=== PATIENT | female | born 1950 | race African-American/Black ===

== ENCOUNTER → 2017-02-10 | Outpatient (CLI) | payer MEDICARE ==
[2016-08-22 15:00] VITALS: BP 120/80
[~2017-02-10] MED LIST: ASPI81TA2 PO; LISI-338 PO; LORA10TA3 PO; METF500T4 PO; METF500T9 PO; PRAV40TA2 PO; VERA240C2 PO
--- NOTE | 2017-02-10 15:58 | RAD ---
Examination: 3 views of the right History: History of degenerative disc disease, pain in the posterior knee Comparison: 01/17/2011. Findings: There is moderate moderate to severe joint space loss identified in the medial, lateral compartment femoral compartment most severe in the patellofemoral compartment. There is faint vertical calcification identified in the region superior to the patella, nonspecific could be vascular calcification or capsular calcification. Impression: 1. Severe tricompartmental degenerative changes most severe in the patellofemoral compartment 2. There is faint vertical calcification identified in the region superior to the patella, nonspecific could be vascular calcification or capsular calcification.
== END | disposition home or self-care (01) ==
LOC: RAD 13:00
PROVIDERS: ATTEND Family Medicine
DX: M17.11 Unilateral primary osteoarthritis, right knee (principal)
CPT/HCPCS: 73562

== ENCOUNTER 2017-06-24 22:45 | Inpatient (IN) | payer MEDICARE ==
[~2017-06-24] VITALS: Ht 162.6 cm; Wt 85.7 kg
[~2017-06-24 22:45] MED LIST changes: +ASPI-630 PO; -ASPI81TA2 PO
[2017-06-24 23:10] LABS: BASO # 0.1 x10^3/uL (0.0-0.2); BASO % 1 % (0-3); EOS % 1 % (0-3); HEMATOCRIT 37.8 % (36.0-47.0); HEMOGLOBIN 12.7 g/dL (12.0-15.5); LYMPH # 4.3 x10^3/uL (1.0-4.8); LYMPH % 40 % (24-48); MEAN CORPUSCULAR HEMOGLOBIN 32 pg (25-35); MEAN CORPUSCULAR HGB CONC 34 g/dL (31-37); MEAN CORPUSCULAR VOLUME 94 fL (79-100); MONO % 10 % (0-9); NEUT % 47 % (31-73); PLATELET COUNT 205 x10^3/uL (140-400); RED BLOOD COUNT 4.02 x10^6/uL (3.50-5.40); WHITE BLOOD COUNT 10.6 x10^3/uL (4.0-11.0)
[2017-06-24] MEDS ORDERED: ONDANSETRON PF 4 MG/2 ML VIAL. IV PRN (23:15)
[2017-06-24] MEDS ORDERED: MORPHINE SULFATE 4 MG/ML DISP.SYRIN. IV PRN (23:15)
[2017-06-24] MEDS ORDERED: NITROGLYCERIN SUBLINGUAL 0.4 MG BOTTLE OF 25. SL PRN (23:15)
[2017-06-24] MEDS ORDERED: ACETAMINOPHEN 325 MG TABLET. PO PRN (23:15)
--- NOTE | 2017-06-24 23:18 | PHYS DOC ---
Past Medical History Past Medical History: Arthritis, Diabetes-Type II, GERD, High Cholesterol, Hypertension, Other Past Surgical History: , Other Additional Past Surgical Histo: cataract Alcohol Use: None Drug Use: None Adult General Chief Complaint Chief Complaint: CHEST PAIN HPI HPI Patient is a 67 year old female who presents here today complaining of left- sided chest pain to her left arm with diaphoresis. Patient reports the pain started earlier today. Patient has a history of hypertension diabetes. Patient has any liver longer kidney problems. Patient has no history of coronary disease or strokes in the past. Patient reports she had a normal exercise stress test here at [facility] approximate one year ago when she was admitted for chest pain. Patient reports she is tobacco free for approximately one year. She reports when she was admitted to the hospital at [place] one year ago that was last time she smoked. Patient has any alcohol or drugs. Patient has any fevers shakes chills vomiting or diarrhea. Patient does admit to some nausea with her chest discomfort. Patient reports dizziness with chest discomfort. Patient has diaphoresis and some shortness of breath. Patient has any calf pain. Patient has any fevers shakes chills nausea vomiting diarrhea Cough cold rhinorrhea per Review of systems Constitutional: Denies fever or chills Eyes: Denies change in visual acuity, redness, or eye pain All other review systems are negative except as documented in the history of present illness portion. Physical exam Constitutional: Well developed, well nourished, no acute distress, non-toxic appearance. HENT: Normocephalic, atraumatic, bilateral external ears normal, oropharynx moist, no oral exudates, nose normal. Eyes: conjunctiva normal, no discharge. Neck: Normal range of motion, no tenderness, supple, no stridor. Cardiovascular:Heart rate regular rhythm, Lungs & Thorax: Bilateral breath sounds clear to auscultation Abdomen: Bowel sounds normal, soft, no tenderness, no masses, no pulsatile masses. Skin: Warm, dry, Back: No tenderness, Extremities: No tenderness, no cyanosis, Neurologic: Alert and oriented X 3, normal motor function, normal sensory function, no focal deficits noted. Psychologic: Affect normal, judgement normal, mood normal. EKG reveals normal sinus rhythm at a heart rate of [address]-T wave abnormalities. No evidence of ST elevation. Normal intervals. Assessment and plan this is a 67-year-old female who presents to the ER today secondary to left-sided chest pressure. Patient has associated shortness of breath nausea and diaphoresis. Patient's EKG is unremarkable. Patient will be admitted to the hospital for further cardiac evaluation given her symptoms and her cardiac risk factors. Dr. Strickland will be consulted per Dr. fall request. Patient's currently pain-free in the ED. Current Medications Current Medications Current Medications Medications (Trade) Dose Ordered Sig/Mal[place] Start Time Stop Time Status Last Admin Dose Admin Aspirin (Children'S Aspirin) 324 mg 1X ONCE 06/24/17 23:30 06/24/17 23:31 Nitroglycerin (Nitro-Bid Oint) 1 inch 1X ONCE 06/24/17 23:30 06/24/17 23:31 Allergies Allergies Allergies Coded Allergies Type Severity Reaction Last Updated Verified lisinopril Allergy Intermediate angioedema 04/27/15 Yes codeine Adverse Reaction Intermediate Nausea and Vomiting 04/27/15 Yes Current Patient Data Vital Signs Vital Signs Date Time Temp Pulse Resp B/P (MAP) Pulse Ox O2 Delivery O2 Flow Rate FiO2 06/24/17 23:03 97.7 63 18 181/104 (129) 98 Room Air 97.7 Lab Values Laboratory Tests Test 06/24/17 22:35 White Blood Count 10.6 x10^3/uL (4.0-11.0) Red Blood Count 4.02 x10^6/uL (3.50-5.40) Hemoglobin 12.7 g/dL (12.0-15.5) Hematocrit 37.8 % (36.0-47.0) Mean Corpuscular Volume 94 fL (79-100) Mean Corpuscular Hemoglobin 32 pg (25-35) Mean Corpuscular Hemoglobin Concent 34 g/dL (31-37) Red Cell Distribution Width 14.0 % (11.5-14.5) Platelet Count 205 x10^3/uL (140-400) Neutrophils (%) (Auto) 47 % (31-73) Lymphocytes (%) (Auto) 40 % (24-48) Monocytes (%) (Auto) 10 % (0-9) H Eosinophils (%) (Auto) 1 % (0-3) Basophils (%) (Auto) 1 % (0-3) Neutrophils # (Auto) 5.0 x10^3uL (1.8-7.7) Lymphocytes # (Auto) 4.3 x10^3/uL (1.0-4.8) Monocytes # (Auto) 1.1 x10^3/uL (0.0-1.1) Eosinophils # (Auto) 0.2 x10^3/uL (0.0-0.7) Basophils # (Auto) 0.1 x10^3/uL (0.0-0.2) Laboratory Tests 06/24/17 22:35 EKG EKG [] Radiology/Procedures Radiology/Procedures [] Course & Med Decision Making Course & Med Decision Making Pertinent Labs and Imaging studies reviewed. (See chart for details) [] Dragon Disclaimer Dragon Disclaimer This electronic medical record was generated, in whole or in part, using a voice recognition dictation system. Departure Departure Impression: Primary Impression: Chest pain Disposition: ADMITTED INPATIENT Admitting Physician: Ha Fall Condition: IMPROVED Referrals: JESSICA RAMOS (PCP) SAGRARIO STONE MD Jun 24, 2017 23:18
[2017-06-24] MEDS ORDERED: ASPIRIN CHEWABLE 81 MG TABLET. PO ONE (23:30)
[2017-06-24] MEDS ORDERED: NITROGLYCERIN OINT 1 GM PACKET. TP ONE (23:30)
[2017-06-24 23:49] LABS: CALCIUM 9.1 mg/dL (8.5-10.1); CREATININE 0.7 mg/dL (0.6-1.0); GFR 101.3; POTASSIUM 3.5 mmol/L (3.5-5.1)
[2017-06-24 23:55] LABS: ALBUMIN 3.3 g/dL (3.4-5.0); ALBUMIN/GLOBULIN RATIO 0.9 (1.0-1.7); TOTAL BILIRUBIN 0.2 mg/dL (0.2-1.0); TOTAL PROTEIN 7.1 g/dL (6.4-8.2)
[2017-06-25 00:11] VITALS: BP 162/88
[2017-06-25] MEDS ORDERED: GABA-585 PO (02:07)
[2017-06-25] MEDS ORDERED: HYDR-2758 PO (02:07)
[2017-06-25 03:38] VITALS: BP 117/69
[2017-06-25 07:00] VITALS: BP 138/75
--- NOTE | 2017-06-25 08:10 | RAD ---
AP chest. History: Chest pain AP view was taken of the chest. Lungs are clear. Aorta is tortuous. Heart is normal in size. There is no pleural effusion. There is arthritis in both shoulders. Impression: 1. No acute chest disease.
--- NOTE | 2017-06-25 09:48 | PDOC ---
Provider Note Provider Note pt. seen by dr. sanford last two admissions in 2014 and 2015. She does not routinely follow with him but for continuity of care, will have pt. seen by Dr. Sanford. Please call if we can be of any further assistance. ZULEYKA GREENE MD Jun 25, 2017 09:48
[2017-06-25 11:00] VITALS: BP 132/71
[2017-06-25] MEDS ORDERED: metFORMIN 500 MG TABLET PO SCH ×2 (11:00→12:00)
--- NOTE | 2017-06-25 11:44 | PDOC ---
Provider Note Provider Note Pt seen.H&P to be dictated. #[id number] TAMAR WOODWARD MD Jun 25, 2017 11:44
[2017-06-25] MEDS ORDERED: DEXTROSE 50% 25 GM / 50ML DISP.SYRIN. IV PRN (11:45)
[2017-06-25] MEDS ORDERED: INSULIN ASPART 300 UNITS/3 ML INSULN.PEN SQ SCH (12:00)
--- NOTE | 2017-06-25 12:06 | EKG ---
[facility] [address] [place] [address] Test Date: 2017-06-25 Test Time: 12:02:49 Pat Name: STACEY TROY Department: Room: 211 1 Gender: F Chicken Cleaner: : 1950 Requested By: TAMAR WOODWARD Order Number: [id number] Reading MD: Jean Calloway Measurements Intervals [place] Rate: 73 P: 36 WV: 250 QRS: 48 QRSD: 90 T: 42 QT: 408 QTc: 453 Interpretive Statements SINUS RHYTHM PROLONGED WV INTERVAL QRS(T) CONTOUR ABNORMALITY CONSIDER ANTEROSEPTAL MYOCARDIAL DAMAGE CONSIDER INFERIOR MYOCARDIAL DAMAGE ABNORMAL ECG RI6.01 Unconfirmed report Compared to ECG 08/21/2016 21:43:05 First degree AV block now present Electronically Signed On 07-13-2017 10:48:54 CDT by Jean Calloway
--- NOTE | 2017-06-25 12:51 | EKG ---
[facility] [address] [place] [address] Test Date: 2017-06-24 Test Time: 22:50:45 Pat Name: STACEY TROY Department: Room: 211 1 Gender: F [employer] Income [employer] Vice President: : 1950 Requested By: SAGRARIO STONE Order Number: [id number] Reading MD: Jean Calloway Measurements Intervals [place] Rate: 60 P: 45 IA: 238 QRS: 37 QRSD: 92 T: 44 QT: 430 QTc: 430 Interpretive Statements SINUS RHYTHM PROLONGED IA INTERVAL NONSPECIFIC ST-T WAVE CHANGES. RI6.01 Unconfirmed report Compared to ECG 08/21/2016 21:43:05 First degree AV block now present Electronically Signed On 07-13-2017 10:43:44 CDT by Jean Calloway
--- NOTE | 2017-06-25 13:28 | HP ---
ADMIT DATE: 06/25/2017 ATTENDING PHYSICIAN: Dr. Woodward. PRIMARY CARE PHYSICIAN: Dr. Gannon. REASON FOR ADMISSION TO THE HOSPITAL: Chest pain and dizziness. HISTORY OF PRESENT ILLNESS: The patient is a 67-year-old female, patient of Dr. Gannon. She was having chest pain and also dizziness, came in to the hospital. She has risk factors including diabetes and hypertension. The patient was admitted 2 years ago, again last year, and had a stress test negative for ischemia, good left ventricular function. The patient was feeling better. She is anxious to go home. The patient had cardiac enzymes negative. EKG negative for ischemia and her heart rate was around 45 while she was lying in the bed. The patient was recommended to stay until seen by Cardiology. She is on diltiazem 120 mg that may be contributing to bradycardia PAST MEDICAL HISTORY: History of diabetes type 2, hypertension, hyperlipidemia, arthritis. PAST SURGICAL HISTORY: x 1, cataract surgery. ALLERGIES: LISINOPRIL AND CODEINE. MEDICATIONS AT HOME: Hydrocodone for pain, verapamil 120 mg daily, gabapentin 100 mg daily, metformin 500 mg daily, pravastatin 40 mg daily. PERSONAL HISTORY: Smoked for 30 years, quit last year. Denies alcohol or street drugs. FAMILY HISTORY: Positive for diabetes, hypertension, heart disease. REVIEW OF SYMPTOMS: CARDIAC: Chest pain yesterday. Today, she is feeling better. Anxious to go home. No shortness of breath. No nausea or vomiting today. PHYSICAL EXAMINATION: GENERAL: The patient is comfortable, not in any distress. VITAL SIGNS: Temperature at the time of admission 97, pulse 63, respirations 18, blood pressure 180/104, 98%. HEENT: Head is atraumatic. Pupils equal. Oral cavity: No congestion. NECK: Supple. Thyroid not enlarged. JVD not elevated. CHEST: Symmetrical. CARDIOVASCULAR: S1, S2. LUNGS: Clear to auscultation. ABDOMEN: Soft. Bowel sounds present. No mass palpable. EXTERNAL GENITALIA: No Puri. RECTAL: Deferred. EXTREMITIES: No calf tenderness, no edema. Pulses 1+. NEUROLOGIC: Cranial nerves intact. Power 5/5 in all extremities. LABORATORY DATA: Shows a white count of 10, hemoglobin 12.7, platelets 205. Electrolytes show sodium 141, potassium 3.5, chloride 105, bicarbonate 26, BUN 17, creatinine 0.7, glucose 209. LFTs were normal. Troponin was negative. Chest x-ray negative. EKG was done in the ER, report is pending. FINAL IMPRESSION: 1. Chest pain for cardiac evaluation. 2. Risk factors including diabetes, hypertension, history of smoking for 30 years, quit last year and the patient had a workup done 2 years ago including a stress test, was negative for ischemia. 3. Bradycardia while the patient is lying in bed, probably related to Cardizem. PLAN: hold on cardizam due to bradycardia. serial ekg and cardiac enzymes cardiac rehab nurse. Awaiting Cardiology input. The patient recommended to stay until evaluation is done. The patient is anxious to go home. If further testing needs to be done, could be done as outpatient. TAMAR WOODWARD MD DR: AUTUMN/brandt JOB#: [id number] / [id number] JESSICA Feliz
--- NOTE | 2017-06-25 15:43 | PDOC2 ---
CONSULT Date of Consult Date of Consult DATE: 06/25/17 TIME: 15:38 Reason for Consult Reason for Consult: Chest pain and bradycardia Referring Physician Referring Physician: Dr Sellers Identification/Chief Complaint Chief Complaint Chest pain and bradycardia Problems: History of Present Illness Reason for Visit: This patient is a very pleasant 67-year-old lady that I have seen in the past. She has a known history of hypertension and is very active. She works and usually is on her feet and walking about 4-5 hours a day. The patient came in after she had an episode of chest discomfort with associated lightheadedness. After arrival she was found to be bradycardic with a heart rate in the 40s but maintaining a normal blood pressure. Since she came in her enzymes have been negative and there has been no EKG changes. She has remained in sinus rhythm since arrival. At the time that I saw her the patient states that she feels fine and is not having any discomforts. She states that this discomfort that she had in the chest was different from what she is had in the past. No chest discomforts at the time that I saw her. The patient wants to go home to be seen and worked up as an outpatient. Past Medical History Cardiovascular: HTN GI: GERD Endocrine: Diabetes Current Problem List Problem List Problems Medical Problems: (1) Chest pain Status: Acute Current Medications Current Medications Current Medications Nitroglycerin (Nitro-Bid Oint) 1 inch 1X ONCE TP Last administered on 23:23; Start 06/24/17 at 23:30; Stop 06/24/17 at 23:31; Status DC Aspirin (Children'S Aspirin) 324 mg 1X ONCE PO ; Start 06/24/17 at 23:30; Stop 06/24/17 at 23:30; Status DC Ondansetron HCl (Zofran) 4 mg PRN Q8HRS PRN IV NAUSEA/VOMITING; Start 06/24/17 at 23:15; Stop 06/25/17 at 14:03; Status DC Morphine Sulfate 2 mg PRN Q2HR PRN IV SEVERE PAIN; Start 06/24/17 at 23:15; Stop 06/25/17 at 14:03; Status DC Acetaminophen (Tylenol) 650 mg PRN Q4HRS PRN PO FEVER Last administered on 06/25 05:27; Start 06/24/17 at 23:15; Stop 06/25/17 at 14:03; Status DC Nitroglycerin (Nitrostat) 0.4 mg PRN Q5MIN PRN SL CHEST PAIN; Start 06/24/17 at 23:15; Stop 06/25/17 at 14:03; Status DC Gabapentin (Neurontin) 100 mg QHS PO ; Start 06/25/17 at 21:00; Stop 06/25/17 at 21:00; Status DC Metformin HCl (Glucophage) 500 mg DAILY PO Last administered on 06/25/17 11:27 ; Start 06/25/17 at 12:00; Stop 06/25/17 at 14:03; Status DC Metformin HCl (Glucophage Xr) 1,000 mg DAILYWSUP PO ; Start 06/25/17 at 17:00; Stop 06/25/17 at 17:00; Status DC Atorvastatin Calcium (Lipitor) 10 mg QHS PO ; Start 06/25/17 at 21:00; Stop at 21:00; Status DC Metformin HCl (Glucophage) 500 mg DAILY PO ; Start 06/25/17 at 11:00; Status UNV Insulin Aspart (NovoLOG) 0-7 UNITS TIDWMEALS SQ Last administered on 06/25/17 12:49; Start 06/25/17 at 12:00; Stop 06/25/17 at 14:03; Status DC Dextrose (Dextrose 50%-Water Syringe) 12.5 gm PRN Q15MIN PRN IV SEE COMMENTS; Start 06/25/17 at 11:45; Stop 06/25/17 at 14:03; Status DC Active Scripts Active Reported Hydrocodone-Apap 5-325 (Hydrocodone Bit/Acetaminophen) 1 Each Tablet 1 Tab PO PRN Q4HRS PRN Gabapentin 100 Mg Capsule 100 Mg PO QHS Metformin Hcl Er (Metformin Hcl) 500 Mg Tab.er.24h 2 Tab PO DAILYWSUP Pravastatin Sodium 40 Mg Tablet 40 Mg PO HS Metformin Hcl 500 Mg Tablet 500 Mg PO DAILY Allergies Allergies: Coded Allergies: lisinopril (Verified Allergy, Intermediate, angioedema, 04/27/15) codeine (Verified Adverse Reaction, Intermediate, Nausea and Vomiting, 04/27) Physical Exam General: Alert, Oriented X3, Cooperative HEENT: PERRLA, Mucous membr. moist/pink Lungs: Clear to auscultation Heart: Regular rate, Normal S1, Normal S2 Abdomen: Normal bowel sounds, Soft Extremities: No edema Vitals VITALS Vital Signs Date Time Temp Pulse Resp B/P (MAP) Pulse Ox O2 Delivery O2 Flow Rate FiO2 06/25/17 11:00 97.9 76 18 132/71 (91) 98 Room Air 97.9 Labs Labs Laboratory Tests Test 06/24/17 22:35 06/24/17 23:30 06/25/17 04:30 06/25/17 08:20 White Blood Count 10.6 x10^3/uL (4.0-11.0) Red Blood Count 4.02 x10^6/uL (3.50-5.40) Hemoglobin 12.7 g/dL (12.0-15.5) Hematocrit 37.8 % (36.0-47.0) Mean Corpuscular Volume 94 fL (79-100) Mean Corpuscular Hemoglobin 32 pg (25-35) Mean Corpuscular Hemoglobin Concent 34 g/dL (31-37) Red Cell Distribution Width 14.0 % (11.5-14.5) Platelet Count 205 x10^3/uL (140-400) Neutrophils (%) (Auto) 47 % (31-73) Lymphocytes (%) (Auto) 40 % (24-48) Monocytes (%) (Auto) 10 % (0-9) Eosinophils (%) (Auto) 1 % (0-3) Basophils (%) (Auto) 1 % (0-3) Neutrophils # (Auto) 5.0 x10^3uL (1.8-7.7) Lymphocytes # (Auto) 4.3 x10^3/uL (1.0-4.8) Monocytes # (Auto) 1.1 x10^3/uL (0.0-1.1) Eosinophils # (Auto) 0.2 x10^3/uL (0.0-0.7) Basophils # (Auto) 0.1 x10^3/uL (0.0-0.2) Sodium Level 141 mmol/L (136-145) Potassium Level 3.5 mmol/L (3.5-5.1) Chloride Level 105 mmol/L (98-107) Carbon Dioxide Level 26 mmol/L (21-32) Anion Gap 10 (6-14) Blood Urea Nitrogen 17 mg/dL (7-20) Creatinine 0.7 mg/dL (0.6-1.0) Estimated GFR (Cockcroft-Gault) 101.3 BUN/Creatinine Ratio 24 (6-20) Glucose Level 209 mg/dL (70-99) Calcium Level 9.1 mg/dL (8.5-10.1) Total Bilirubin 0.2 mg/dL (0.2-1.0) Aspartate Amino Transf (AST/SGOT) 13 U/L (15-37) Alanine Aminotransferase (ALT/SGPT) 17 U/L (14-59) Alkaline Phosphatase 135 U/L (46-116) Troponin I Quantitative < 0.017 ng/mL (0.000-0.055) 0.023 ng/mL (0.000-0.055) Total Protein 7.1 g/dL (6.4-8.2) Albumin 3.3 g/dL (3.4-5.0) Albumin/Globulin Ratio 0.9 (1.0-1.7) Glucose (Fingerstick) 168 mg/dL (70-99) Test 06/25/17 11:25 06/25/17 12:09 Troponin I Quantitative 0.017 ng/mL (0.000-0.055) Glucose (Fingerstick) 280 mg/dL (70-99) Laboratory Tests Test 06/24/17 22:35 06/24/17 23:30 06/25/17 04:30 06/25/17 08:20 White Blood Count 10.6 x10^3/uL (4.0-11.0) Red Blood Count 4.02 x10^6/uL (3.50-5.40) Hemoglobin 12.7 g/dL (12.0-15.5) Hematocrit 37.8 % (36.0-47.0) Mean Corpuscular Volume 94 fL (79-100) Mean Corpuscular Hemoglobin 32 pg (25-35) Mean Corpuscular Hemoglobin Concent 34 g/dL (31-37) Red Cell Distribution Width 14.0 % (11.5-14.5) Platelet Count 205 x10^3/uL (140-400) Neutrophils (%) (Auto) 47 % (31-73) Lymphocytes (%) (Auto) 40 % (24-48) Monocytes (%) (Auto) 10 % (0-9) Eosinophils (%) (Auto) 1 % (0-3) Basophils (%) (Auto) 1 % (0-3) Neutrophils # (Auto) 5.0 x10^3uL (1.8-7.7) Lymphocytes # (Auto) 4.3 x10^3/uL (1.0-4.8) Monocytes # (Auto) 1.1 x10^3/uL (0.0-1.1) Eosinophils # (Auto) 0.2 x10^3/uL (0.0-0.7) Basophils # (Auto) 0.1 x10^3/uL (0.0-0.2) Sodium Level 141 mmol/L (136-145) Potassium Level 3.5 mmol/L (3.5-5.1) Chloride Level 105 mmol/L (98-107) Carbon Dioxide Level 26 mmol/L (21-32) Anion Gap 10 (6-14) Blood Urea Nitrogen 17 mg/dL (7-20) Creatinine 0.7 mg/dL (0.6-1.0) Estimated GFR (Cockcroft-Gault) 101.3 BUN/Creatinine Ratio 24 (6-20) Glucose Level 209 mg/dL (70-99) Calcium Level 9.1 mg/dL (8.5-10.1) Total Bilirubin 0.2 mg/dL (0.2-1.0) Aspartate Amino Transf (AST/SGOT) 13 U/L (15-37) Alanine Aminotransferase (ALT/SGPT) 17 U/L (14-59) Alkaline Phosphatase 135 U/L (46-116) Troponin I Quantitative < 0.017 ng/mL (0.000-0.055) 0.023 ng/mL (0.000-0.055) Total Protein 7.1 g/dL (6.4-8.2) Albumin 3.3 g/dL (3.4-5.0) Albumin/Globulin Ratio 0.9 (1.0-1.7) Glucose (Fingerstick) 168 mg/dL (70-99) Test 06/25/17 11:25 06/25/17 12:09 Troponin I Quantitative 0.017 ng/mL (0.000-0.055) Glucose (Fingerstick) 280 mg/dL (70-99) Assessment/Plan Assessment/Plan This patient comes in with some chest discomfort and found to be in sinus bradycardia. So far the workup has been negative and the patient appears to be stable. She wants to go home to have the workup done as an outpatient. I would like to do a Lexiscan MPI and a 24-hour Holter but we can do this as an outpatient. The patient may go home. Thank you very much for asking me to participate in the care of this patient ERICKA MEADE MD Jun 25, 2017 15:43
[2017-06-25] MEDS ORDERED: metFORMIN XR 500 MG TAB.ER.24H PO SCH (17:00)
[2017-06-25] MEDS ORDERED: ATORVASTATIN CALCIUM 10 MG TABLET. PO SCH (21:00)
[2017-06-25] MEDS ORDERED: GABAPENTIN 100 MG CAPSULE. PO SCH (21:00)
--- NOTE | 2017-06-25 22:28 | PDOC ---
Provider Note Provider Note Discharge summary dictated. #[id number] TAMAR WOODWARD MD Jun 25, 2017 22:28
--- NOTE | 2017-06-25 23:30 | DS ---
DATE OF DISCHARGE: 06/25/2017 REASON FOR ADMISSION TO THE HOSPITAL: Chest pain and bradycardia. CONSULTATIONS: Dr. Sanford. PROCEDURES DONE: None. COMPLICATIONS NOTED: None. HOSPITAL COURSE: The patient is a 67-year-old female with history of hypertension, diabetes and hyperlipidemia. She has underlying chest pain on the left side and she also had Cardizem, came with bradycardia 40s-45. The patient had cardiac enzymes and EKG was negative for ischemia. No more chest pains and she is anxious to go home. Chest x-ray was negative. Labs were unremarkable. The patient was seen by Cardiology and she did not want to stay in the hospital and she was recommended to stress test, Lexiscan and Holter as outpatient. In the meantime, it was decided to hold on Cardizem secondary to bradycardia and see how she improves. FINAL DIAGNOSES: 1. Chest pain, atypical. The patient had a stress test 2 years ago, negative for ischemia. 2. Bradycardia secondary to medication Cardizem. 3. Diabetes, hypertension and hyperlipidemia, stable. DISPOSITION: Home scheduled for outpatient stress test and Lexiscan. TAMAR WOODWARD MD DR: AUTUMN/brandt JOB#: [id number] / [id number] JESSICA Feliz
== END 2017-06-25 14:03 | disposition home or self-care (01) | DRG 392 ==
LOC: ER 22:45 → 2 NORTH 23:11
PROVIDERS: ADMIT Internal Medicine; ATTEND Internal Medicine
DX: K21.9 Gastro-esophageal reflux disease without esophagitis (principal); I10 Essential (primary) hypertension; R00.1 Bradycardia, unspecified; M19.90 Unspecified osteoarthritis, unspecified site; E11.9 Type 2 diabetes mellitus without complications; E78.00 Pure hypercholesterolemia, unspecified; E78.5 Hyperlipidemia, unspecified; T46.1X5A Adverse effect of calcium-channel blockers, initial encounter; Z87.891 Personal history of nicotine dependence; Z88.8 Allergy status to other drugs, medicaments and biological substances; Z88.5 Allergy status to narcotic agent; Z83.3 Family history of diabetes mellitus; Z82.49 Family history of ischemic heart disease and other diseases of the circulatory system
CPT/HCPCS: 36415; 71010; 80053; 82962; 84484; 85025; 93005; J1815; 99285-25

== ENCOUNTER 2017-10-09 10:38 | Inpatient (IN) | payer MEDICARE ==
[2017-10-09] MEDS: MORPHINE SULFATE 10 MG/ML VIAL. IV ×2 (11:00→12:31)
[2017-10-09 11:06] LABS: ADD MAN DIFF? NO
[2017-10-09 11:11] LABS: BASO # 0.1 x10^3/uL (0.0-0.2); BASO % 1 % (0-3); EOS # 0.1 x10^3/uL (0.0-0.7); EOS % 1 % (0-3); HEMATOCRIT 37.7 % (36.0-47.0); HEMOGLOBIN 12.6 g/dL (12.0-15.5); LYMPH # 3.6 x10^3/uL (1.0-4.8); LYMPH % 36 % (24-48); MEAN CORPUSCULAR HEMOGLOBIN 32 pg (25-35); MEAN CORPUSCULAR HGB CONC 33 g/dL (31-37); MEAN CORPUSCULAR VOLUME 95 fL (79-100); MONO # 0.8 x10^3/uL (0.0-1.1); MONO % 8 % (0-9); NEUT # 5.3 x10^3uL (1.8-7.7); NEUT % 54 % (31-73); PLATELET COUNT 194 x10^3/uL (140-400); RED BLOOD COUNT 3.97 x10^6/uL (3.50-5.40); RED CELL DISTRIBUTION WIDTH 15.1 % (11.5-14.5)
[2017-10-09 11:18] LABS: ANION GAP 12 (6-14); BLOOD UREA NITROGEN 12 mg/dL (7-20); BUN/CREATININE RATIO 17 (6-20); CALCIUM 9.3 mg/dL (8.5-10.1); CARBON DIOXIDE 25 mmol/L (21-32); CHLORIDE 104 mmol/L (98-107); CREATININE 0.7 mg/dL (0.6-1.0); GFR 101.3; GLUCOSE 260 mg/dL (70-99); POTASSIUM 3.7 mmol/L (3.5-5.1); SODIUM 141 mmol/L (136-145)
[2017-10-09 11:26] LABS: ALBUMIN 3.5 g/dL (3.4-5.0); ALBUMIN/GLOBULIN RATIO 0.9 (1.0-1.7); ALK PHOS 124 U/L (46-116); ALT (SGPT) 20 U/L (14-59); AST (SGOT) 17 U/L (15-37); TOTAL BILIRUBIN 0.3 mg/dL (0.2-1.0); TOTAL PROTEIN 7.5 g/dL (6.4-8.2)
[2017-10-09] MEDS ORDERED: ONDANSETRON PF 4 MG/2 ML VIAL. IV (12:45)
[2017-10-09] MEDS: IV NORMAL SALINE 1000ML BAG 1,000 ML IV ×2 (14:15→21:00)
[2017-10-09] MEDS: MORPHINE SULFATE 4 MG/ML DISP.SYRIN. IV ×2 (14:19→17:07)
[2017-10-09] MEDS ORDERED: DEXTROSE 50% 25 GM / 50ML DISP.SYRIN. IV (20:00)
[2017-10-09 20:47] LABS: POC GLUCOSE 217 mg/dL (70-99)
[2017-10-09] MEDS: GABAPENTIN 100 MG CAPSULE. PO (22:11)
[2017-10-09] MEDS: ATORVASTATIN CALCIUM 10 MG TABLET. PO (22:11)
[2017-10-09] MEDS: oxyCODONE/APAP 5/325 1 TAB TABLET PO (22:12)
[2017-10-09] MEDS: fentaNYL PF VIAL 100 MCG/2 ML VIAL IV (22:12)
[2017-10-09] MEDS: INSULIN ASPART 300 UNITS/3 ML INSULN.PEN SQ (22:20)
[2017-10-09 22:59] LABS: POC GLUCOSE 198 mg/dL (70-99)
[2017-10-10] MEDS: fentaNYL PF VIAL 100 MCG/2 ML VIAL IV ×9 (03:45→16:36)
[2017-10-10] MEDS: IV NORMAL SALINE 1000ML BAG 1,000 ML IV (05:31)
[2017-10-10] MEDS: oxyCODONE/APAP 5/325 1 TAB TABLET PO ×2 (05:40→21:28)
[2017-10-10 06:10] LABS: ADD MAN DIFF? NO
[2017-10-10 06:31] LABS: BASO # 0.1 x10^3/uL (0.0-0.2); BASO % 1 % (0-3); EOS # 0.2 x10^3/uL (0.0-0.7); EOS % 2 % (0-3); HEMATOCRIT 31.1 % (36.0-47.0); HEMOGLOBIN 10.1 g/dL (12.0-15.5); LYMPH # 3.3 x10^3/uL (1.0-4.8); LYMPH % 29 % (24-48); MEAN CORPUSCULAR HEMOGLOBIN 31 pg (25-35); MEAN CORPUSCULAR HGB CONC 32 g/dL (31-37); MEAN CORPUSCULAR VOLUME 94 fL (79-100); MONO # 1.4 x10^3/uL (0.0-1.1); MONO % 12 % (0-9); NEUT # 6.3 x10^3uL (1.8-7.7); NEUT % 56 % (31-73); PLATELET COUNT 158 x10^3/uL (140-400); RED BLOOD COUNT 3.32 x10^6/uL (3.50-5.40); RED CELL DISTRIBUTION WIDTH 14.6 % (11.5-14.5); WHITE BLOOD COUNT 11.2 x10^3/uL (4.0-11.0)
[2017-10-10 06:42] LABS: ALBUMIN 2.9 g/dL (3.4-5.0); ALBUMIN/GLOBULIN RATIO 0.8 (1.0-1.7); ALK PHOS 90 U/L (46-116); ALT (SGPT) 15 U/L (14-59); ANION GAP 11 (6-14); AST (SGOT) 13 U/L (15-37); BLOOD UREA NITROGEN 12 mg/dL (7-20); BUN/CREATININE RATIO 20 (6-20); CALCIUM 8.1 mg/dL (8.5-10.1); CARBON DIOXIDE 24 mmol/L (21-32); CHLORIDE 106 mmol/L (98-107); CREATININE 0.6 mg/dL (0.6-1.0); GLUCOSE 137 mg/dL (70-99); SODIUM 141 mmol/L (136-145); TOTAL BILIRUBIN 0.3 mg/dL (0.2-1.0); TOTAL PROTEIN 6.4 g/dL (6.4-8.2)
[2017-10-10] MEDS ORDERED: IV RINGERS,LACTATED 1000ML 1,000 ML IV (06:47)
[2017-10-10] MEDS: IV RINGERS,LACTATED 1000ML 1,000 ML IV (06:51)
[2017-10-10] MEDS ORDERED: fentaNYL PF VIAL 100 MCG/2 ML VIAL IV ×2 (07:00)
[2017-10-10] MEDS ORDERED: PROCHLORPERAZINE 10 MG/2 ML VIAL. IV ×2 (07:00)
[2017-10-10] MEDS ORDERED: LIDOCAINE 1% PF 2 ML VIAL. ID ×2 (07:00)
[2017-10-10] MEDS ORDERED: MORPHINE SULFATE 2 MG/ML DISP.SYRIN. IV ×2 (07:00)
[2017-10-10] MEDS ORDERED: ONDANSETRON PF 4 MG/2 ML VIAL. IV ×3 (07:00→13:15)
[2017-10-10] MEDS ORDERED: HYDROmorphone 2 MG/ML VIAL IV ×2 (07:00)
[2017-10-10] MEDS: LOSARTAN POTASSIUM 25 MG TABLET. PO (07:15)
[2017-10-10] MEDS ORDERED: INSULIN ASPART 300 UNITS/3 ML INSULN.PEN SQ ×2 (07:30→08:00)
[2017-10-10] MEDS: INSULIN ASPART 300 UNITS/3 ML INSULN.PEN SQ ×4 (07:58→21:40)
[2017-10-10] MEDS ORDERED: PROPOFOL 20 ML IV ×2 (10:05→12:48)
[2017-10-10] MEDS ORDERED: ROCURONIUM 50 MG/5 ML VIAL. ×2 (10:05→11:34)
[2017-10-10 10:32] LABS: POC GLUCOSE 159 mg/dL (70-99)
[2017-10-10] MEDS ORDERED: fentaNYL PF VIAL 100 MCG/2 ML VIAL ×2 (11:13→13:17)
[2017-10-10] MEDS ORDERED: fentaNYL PF VIAL 250 MCG/5 ML VIAL (11:34)
[2017-10-10] MEDS ORDERED: DEXAMETHASONE SOD PHOS 20 MG/5 ML VIAL. (12:48)
[2017-10-10] MEDS ORDERED: ONDANSETRON PF 4 MG/2 ML VIAL. (12:48)
[2017-10-10] MEDS ORDERED: NEOSTIGMINE METHYLSULFATE 5 MG/5 ML SYRINGE. (12:49)
[2017-10-10] MEDS ORDERED: GLYCOPYRROLATE 1 MG/5 ML VIAL. (12:49)
[2017-10-10] MEDS ORDERED: DEXTROSE 50% 25 GM / 50ML DISP.SYRIN. IV (13:15)
[2017-10-10 13:45] LABS: POC GLUCOSE 187 mg/dL (70-99)
[2017-10-10 14:47] LABS: INR 1.2 (0.8-1.1); PROTHROMBIN TIME PATIENT 14.5 SEC (11.7-14.0)
[2017-10-10] MEDS ORDERED: WARFARIN 7.5 MG TABLET. PO (16:00)
[2017-10-10] MEDS: SENNOSIDES/DOCUSATE 8.6/50MG TABLET. PO (16:32)
[2017-10-10] MEDS: WARFARIN 6 MG TABLET. PO (16:32)
[2017-10-10 16:38] LABS: POC GLUCOSE 234 mg/dL (70-99)
[2017-10-10] MEDS: oxyCODONE IR 5 MG TABLET PO (17:48)
[2017-10-10] MEDS: HYDROmorphone 2 MG/ML VIAL IVP (19:03)
[2017-10-10 20:39] LABS: POC GLUCOSE 271 mg/dL (70-99)
[2017-10-10] MEDS: GABAPENTIN 100 MG CAPSULE. PO (21:27)
[2017-10-10] MEDS: ATORVASTATIN CALCIUM 10 MG TABLET. PO (21:27)
[2017-10-11] MEDS: ACETAMINOPHEN 325 MG TABLET. PO (00:07)
[2017-10-11] MEDS: oxyCODONE IR 5 MG TABLET PO ×3 (00:09→20:24)
[2017-10-11] MEDS: oxyCODONE/APAP 5/325 1 TAB TABLET PO ×3 (04:03→16:56)
[2017-10-11 05:24] LABS: INR 1.3 (0.8-1.1); PROTHROMBIN TIME PATIENT 15.2 SEC (11.7-14.0)
[2017-10-11 05:35] LABS: BASO % 0 % (0-3); EOS % 0 % (0-3); HEMATOCRIT 24.6 % (36.0-47.0); HEMOGLOBIN 8.2 g/dL (12.0-15.5); LYMPH # 2.7 x10^3/uL (1.0-4.8); LYMPH % 20 % (24-48); MEAN CORPUSCULAR HEMOGLOBIN 32 pg (25-35); MEAN CORPUSCULAR HGB CONC 33 g/dL (31-37); MEAN CORPUSCULAR VOLUME 95 fL (79-100); MONO # 2.2 x10^3/uL (0.0-1.1); MONO % 16 % (0-9); NEUT # 8.9 x10^3uL (1.8-7.7); NEUT % 65 % (31-73); PLATELET COUNT 135 x10^3/uL (140-400); RED BLOOD COUNT 2.59 x10^6/uL (3.50-5.40); RED CELL DISTRIBUTION WIDTH 14.8 % (11.5-14.5); WHITE BLOOD COUNT 13.8 x10^3/uL (4.0-11.0)
[2017-10-11 05:41] LABS: ANION GAP 10 (6-14); BLOOD UREA NITROGEN 12 mg/dL (7-20); CALCIUM 8.2 mg/dL (8.5-10.1); CARBON DIOXIDE 25 mmol/L (21-32); CHLORIDE 103 mmol/L (98-107); CREATININE 0.7 mg/dL (0.6-1.0); GFR 101.3; GLUCOSE 222 mg/dL (70-99); SODIUM 138 mmol/L (136-145)
[2017-10-11 05:51] LABS: ADD MAN DIFF? YES
[2017-10-11] MEDS ORDERED: MAGNESIUM HYDROXIDE 2,400 MG/30 ML ORAL.SUSP. PO (06:00)
[2017-10-11 08:49] LABS: POC GLUCOSE 261 mg/dL (70-99)
[2017-10-11] MEDS: SENNOSIDES/DOCUSATE 8.6/50MG TABLET. PO (09:21)
[2017-10-11] MEDS: HYDROmorphone 2 MG/ML VIAL IVP ×2 (09:22→12:53)
[2017-10-11] MEDS: LOSARTAN POTASSIUM 25 MG TABLET. PO (09:31)
[2017-10-11] MEDS: INSULIN ASPART 300 UNITS/3 ML INSULN.PEN SQ ×4 (09:36→21:52)
[2017-10-11 10:51] LABS: % BANDS 4 % (0-9); % LYMPHS 14 % (24-48); % MONOS 10 % (0-10); % SEGS 72 % (35-66); ANISOCYTOSIS PRESENT; PLT ESTIMATE ADEQUATE (ADEQUATE)
[2017-10-11 10:53] LABS: TOXIC GRANULATION PRESENT
[2017-10-11 13:24] LABS: POC GLUCOSE 246 mg/dL (70-99)
[2017-10-11] MEDS ORDERED: BISACODYL 10 MG SUPP.RECT. PR (16:00)
[2017-10-11] MEDS: WARFARIN 5 MG TABLET. PO (16:55)
[2017-10-11] MEDS: metFORMIN XR 500 MG TAB.ER.24H PO (16:55)
[2017-10-11 17:49] LABS: POC GLUCOSE 205 mg/dL (70-99)
[2017-10-11 21:12] LABS: POC GLUCOSE 218 mg/dL (70-99)
[2017-10-11] MEDS: GABAPENTIN 100 MG CAPSULE. PO (21:48)
[2017-10-11] MEDS: ATORVASTATIN CALCIUM 10 MG TABLET. PO (21:48)
[2017-10-11] MEDS: INSULIN DETEMIR 300 UNITS/3 ML INSULN.PEN. SQ (21:51)
[2017-10-12] MEDS: oxyCODONE/APAP 5/325 1 TAB TABLET PO ×5 (01:25→17:42)
[2017-10-12 05:58] LABS: ADD MAN DIFF? NO
[2017-10-12 06:19] LABS: ANION GAP 8 (6-14); BLOOD UREA NITROGEN 12 mg/dL (7-20); CALCIUM 8.3 mg/dL (8.5-10.1); CARBON DIOXIDE 27 mmol/L (21-32); CHLORIDE 105 mmol/L (98-107); CREATININE 0.6 mg/dL (0.6-1.0); GLUCOSE 174 mg/dL (70-99); POTASSIUM 3.9 mmol/L (3.5-5.1); SODIUM 140 mmol/L (136-145)
[2017-10-12 06:24] LABS: % SAT IRON 7 % (15-34); IRON,SERUM 12 ug/dL (50-170)
[2017-10-12 06:26] LABS: BASO # 0.1 x10^3/uL (0.0-0.2); BASO % 1 % (0-3); EOS # 0.1 x10^3/uL (0.0-0.7); EOS % 1 % (0-3); LYMPH # 3.7 x10^3/uL (1.0-4.8); LYMPH % 27 % (24-48); MEAN CORPUSCULAR HEMOGLOBIN 32 pg (25-35); MEAN CORPUSCULAR HGB CONC 33 g/dL (31-37); MEAN CORPUSCULAR VOLUME 96 fL (79-100); MONO # 1.7 x10^3/uL (0.0-1.1); MONO % 12 % (0-9); NEUT # 8.1 x10^3uL (1.8-7.7); NEUT % 59 % (31-73); PLATELET COUNT 128 x10^3/uL (140-400); RED BLOOD COUNT 2.11 x10^6/uL (3.50-5.40); RED CELL DISTRIBUTION WIDTH 14.8 % (11.5-14.5); WHITE BLOOD COUNT 13.6 x10^3/uL (4.0-11.0)
[2017-10-12 06:52] LABS: HEMATOCRIT 20.3 % (36.0-47.0); HEMOGLOBIN 6.7 g/dL (12.0-15.5)
[2017-10-12 06:58] LABS: INR 1.3 (0.8-1.1); PROTHROMBIN TIME PATIENT 15.4 SEC (11.7-14.0)
[2017-10-12] MEDS: LOSARTAN POTASSIUM 25 MG TABLET. PO (09:00)
[2017-10-12] MEDS: oxyCODONE IR 5 MG TABLET PO ×3 (09:13→21:20)
[2017-10-12] MEDS: SENNOSIDES/DOCUSATE 8.6/50MG TABLET. PO (09:14)
[2017-10-12] MEDS: INSULIN ASPART 300 UNITS/3 ML INSULN.PEN SQ ×4 (09:22→17:47)
[2017-10-12 09:48] LABS: IMMEDIATE SPIN CROSSMATCH 1 1
[2017-10-12 11:23] LABS: POC GLUCOSE 160 mg/dL (70-99)
[2017-10-12 11:23] LABS: POC GLUCOSE 196 mg/dL (70-99)
[2017-10-12 16:55] LABS: POC GLUCOSE 176 mg/dL (70-99)
[2017-10-12] MEDS: metFORMIN XR 500 MG TAB.ER.24H PO (17:42)
[2017-10-12] MEDS: WARFARIN 6 MG TABLET. PO (17:42)
[2017-10-12] MEDS: GABAPENTIN 100 MG CAPSULE. PO (20:22)
[2017-10-12] MEDS: ATORVASTATIN CALCIUM 10 MG TABLET. PO (20:22)
[2017-10-12] MEDS: MORPHINE SULFATE 4 MG/ML DISP.SYRIN. IV (20:26)
[2017-10-12 20:42] LABS: POC GLUCOSE 244 mg/dL (70-99)
[2017-10-12] MEDS: INSULIN DETEMIR 300 UNITS/3 ML INSULN.PEN. SQ (21:19)
[2017-10-13] MEDS: oxyCODONE/APAP 5/325 1 TAB TABLET PO ×5 (01:43→19:52)
[2017-10-13 05:46] LABS: ADD MAN DIFF? NO
[2017-10-13 06:02] LABS: BASO % 0 % (0-3); EOS # 0.2 x10^3/uL (0.0-0.7); EOS % 1 % (0-3); HEMATOCRIT 23.7 % (36.0-47.0); HEMOGLOBIN 7.9 g/dL (12.0-15.5); LYMPH # 3.3 x10^3/uL (1.0-4.8); LYMPH % 25 % (24-48); MEAN CORPUSCULAR HEMOGLOBIN 32 pg (25-35); MEAN CORPUSCULAR HGB CONC 33 g/dL (31-37); MEAN CORPUSCULAR VOLUME 95 fL (79-100); MONO # 1.4 x10^3/uL (0.0-1.1); MONO % 11 % (0-9); NEUT # 8.4 x10^3uL (1.8-7.7); NEUT % 63 % (31-73); PLATELET COUNT 151 x10^3/uL (140-400); RED BLOOD COUNT 2.49 x10^6/uL (3.50-5.40); RED CELL DISTRIBUTION WIDTH 14.6 % (11.5-14.5); WHITE BLOOD COUNT 13.3 x10^3/uL (4.0-11.0)
[2017-10-13 06:29] LABS: INR 1.4 (0.8-1.1); PROTHROMBIN TIME PATIENT 16.6 SEC (11.7-14.0)
[2017-10-13] MEDS: MORPHINE SULFATE 4 MG/ML DISP.SYRIN. IV ×4 (06:36→20:03)
[2017-10-13 07:13] LABS: ANION GAP 7 (6-14); BLOOD UREA NITROGEN 10 mg/dL (7-20); CALCIUM 8.5 mg/dL (8.5-10.1); CARBON DIOXIDE 30 mmol/L (21-32); CHLORIDE 105 mmol/L (98-107); CREATININE 0.5 mg/dL (0.6-1.0); GFR 149.4; GLUCOSE 162 mg/dL (70-99); POTASSIUM 4.1 mmol/L (3.5-5.1); SODIUM 142 mmol/L (136-145)
[2017-10-13] MEDS: INSULIN ASPART 300 UNITS/3 ML INSULN.PEN SQ ×3 (08:00→17:00)
[2017-10-13 08:39] LABS: POC GLUCOSE 150 mg/dL (70-99)
[2017-10-13] MEDS: SENNOSIDES/DOCUSATE 8.6/50MG TABLET. PO (09:02)
[2017-10-13] MEDS ORDERED: BENZOCAINE/MENTHOL LOZENGE. PO (11:00)
[2017-10-13] MEDS: IRON SUCROSE COMPLEX 500 MG in IV NORMAL SALINE 250ML 250 ML IV (12:28)
[2017-10-13] MEDS: oxyCODONE IR 5 MG TABLET PO (14:29)
[2017-10-13] MEDS: WARFARIN 6 MG TABLET. PO (16:54)
[2017-10-13] MEDS: FERROUS SULFATE 325 MG TABLET. PO (16:54)
[2017-10-13] MEDS: metFORMIN XR 500 MG TAB.ER.24H PO (16:55)
[2017-10-13 19:07] LABS: POC GLUCOSE 205 mg/dL (70-99)
[2017-10-13 20:01] LABS: POC GLUCOSE 194 mg/dL (70-99)
[2017-10-13] MEDS: GABAPENTIN 100 MG CAPSULE. PO (20:05)
[2017-10-13] MEDS: ATORVASTATIN CALCIUM 10 MG TABLET. PO (20:05)
[2017-10-13 21:11] LABS: POC GLUCOSE 183 mg/dL (70-99)
[2017-10-13] MEDS: INSULIN DETEMIR 300 UNITS/3 ML INSULN.PEN. SQ (21:32)
[2017-10-14] MEDS: oxyCODONE IR 5 MG TABLET PO ×3 (01:29→14:02)
[2017-10-14] MEDS: oxyCODONE/APAP 5/325 1 TAB TABLET PO ×2 (04:24→08:52)
[2017-10-14 05:15] LABS: ADD MAN DIFF? NO
[2017-10-14 05:34] LABS: BASO # 0.1 x10^3/uL (0.0-0.2); BASO % 1 % (0-3); EOS # 0.3 x10^3/uL (0.0-0.7); EOS % 3 % (0-3); HEMATOCRIT 24.2 % (36.0-47.0); HEMOGLOBIN 7.9 g/dL (12.0-15.5); LYMPH # 2.9 x10^3/uL (1.0-4.8); LYMPH % 24 % (24-48); MEAN CORPUSCULAR HEMOGLOBIN 31 pg (25-35); MEAN CORPUSCULAR HGB CONC 33 g/dL (31-37); MEAN CORPUSCULAR VOLUME 94 fL (79-100); MONO # 1.2 x10^3/uL (0.0-1.1); MONO % 10 % (0-9); NEUT # 7.4 x10^3uL (1.8-7.7); NEUT % 63 % (31-73); PLATELET COUNT 175 x10^3/uL (140-400); RED BLOOD COUNT 2.57 x10^6/uL (3.50-5.40); RED CELL DISTRIBUTION WIDTH 14.3 % (11.5-14.5); WHITE BLOOD COUNT 11.9 x10^3/uL (4.0-11.0)
[2017-10-14 05:47] LABS: INR 1.9 (0.8-1.1); PROTHROMBIN TIME PATIENT 20.2 SEC (11.7-14.0)
[2017-10-14 05:54] LABS: ANION GAP 8 (6-14); BLOOD UREA NITROGEN 9 mg/dL (7-20); CALCIUM 8.5 mg/dL (8.5-10.1); CARBON DIOXIDE 30 mmol/L (21-32); CHLORIDE 105 mmol/L (98-107); CREATININE 0.4 mg/dL (0.6-1.0); GFR 193.2; GLUCOSE 140 mg/dL (70-99); POTASSIUM 3.6 mmol/L (3.5-5.1); SODIUM 143 mmol/L (136-145)
[2017-10-14] MEDS: FERROUS SULFATE 325 MG TABLET. PO (08:39)
[2017-10-14] MEDS: POLYETHYLENE GLYCOL 3350 17 GM PACKET. PO (08:39)
[2017-10-14] MEDS: SENNOSIDES/DOCUSATE 8.6/50MG TABLET. PO (08:39)
[2017-10-14] MEDS: INSULIN ASPART 300 UNITS/3 ML INSULN.PEN SQ ×2 (08:50→12:00)
[2017-10-14] MEDS: MORPHINE SULFATE 4 MG/ML DISP.SYRIN. IV (10:35)
[2017-10-14] MEDS: WARFARIN 3 MG TABLET. PO (14:39)
[2017-10-14 18:52] LABS: POC GLUCOSE 143 mg/dL (70-99)
[2017-10-14 18:52] LABS: POC GLUCOSE 160 mg/dL (70-99)
== END 2017-10-14 15:15 | DRG 480 ==
LOC: ER 10:38 → 4 NORTH 10-10 20:50 → ED HOLD 12:19 → 6 SOUTH 14:15
PROVIDERS: Neurological Surgery
PROC: 0QS606Z Reposition Right Upper Femur with Intramedullary Internal Fixation Device, Open Approach (ICD-10-PCS; principal; 2017-10-10 11:40)
PROC: 30233N1 Transfusion of Nonautologous Red Blood Cells into Peripheral Vein, Percutaneous Approach (ICD-10-PCS; 2017-10-10 11:40)
DX: S72.21XA Displaced subtrochanteric fracture of right femur, initial encounter for closed fracture (principal); G93.41 Metabolic encephalopathy; I95.9 Hypotension, unspecified; E11.65 Type 2 diabetes mellitus with hyperglycemia; D62 Acute posthemorrhagic anemia; M19.90 Unspecified osteoarthritis, unspecified site; D50.9 Iron deficiency anemia, unspecified; E78.00 Pure hypercholesterolemia, unspecified; E78.5 Hyperlipidemia, unspecified; I10 Essential (primary) hypertension; K21.9 Gastro-esophageal reflux disease without esophagitis; S72.141A Displaced intertrochanteric fracture of right femur, initial encounter for closed fracture; W01.0XXA Fall on same level from slipping, tripping and stumbling without subsequent striking against object, initial encounter; Y92.481 Parking lot as the place of occurrence of the external cause; Y93.89 Activity, other specified; Y99.8 Other external cause status; Z87.891 Personal history of nicotine dependence; Z88.8 Allergy status to other drugs, medicaments and biological substances; Z83.3 Family history of diabetes mellitus; Z82.49 Family history of ischemic heart disease and other diseases of the circulatory system
CPT/HCPCS: 36415; 71045; 73502; 73560; 76000; 80048; 80053; 82962; 83540; 83550; 85007; 85025; 85610; 86850; 86900; 86901; 86920; 96374; 96376; 97110-GP; 97116-GP; 97166-GO; 97530-GP; 97535-GO; 99285; 99285-25; C1713; C1887; G0238; J0690; J1100; J1170; J1756; J1815; J2270; J2405; J2704; J2710; J3010; J3490; J7030; J7050; P9016

== ENCOUNTER 2017-12-25 18:46 | Emergency (ER) | payer MEDICARE ==
[2017-12-25 19:29] LABS: ADD MAN DIFF? NO
[2017-12-25 19:31] LABS: BASO # 0.1 x10^3/uL (0.0-0.2); BASO % 1 % (0-3); EOS # 0.2 x10^3/uL (0.0-0.7); EOS % 2 % (0-3); HEMATOCRIT 38.2 % (36.0-47.0); HEMOGLOBIN 12.7 g/dL (12.0-15.5); LYMPH # 3.1 x10^3/uL (1.0-4.8); LYMPH % 27 % (24-48); MEAN CORPUSCULAR HEMOGLOBIN 31 pg (25-35); MEAN CORPUSCULAR HGB CONC 33 g/dL (31-37); MEAN CORPUSCULAR VOLUME 93 fL (79-100); MONO # 1.3 x10^3/uL (0.0-1.1); MONO % 11 % (0-9); NEUT % 60 % (31-73); PLATELET COUNT 221 x10^3/uL (140-400); RED BLOOD COUNT 4.12 x10^6/uL (3.50-5.40); RED CELL DISTRIBUTION WIDTH 15.7 % (11.5-14.5); WHITE BLOOD COUNT 11.7 x10^3/uL (4.0-11.0)
[2017-12-25 19:38] LABS: ANION GAP 9 (6-14); BLOOD UREA NITROGEN 22 mg/dL (7-20); CARBON DIOXIDE 28 mmol/L (21-32); CHLORIDE 103 mmol/L (98-107); CREATININE 0.8 mg/dL (0.6-1.0); GFR 86.8; GLUCOSE 211 mg/dL (70-99); POTASSIUM 4.5 mmol/L (3.5-5.1); SODIUM 140 mmol/L (136-145)
[2017-12-25 19:47] LABS: TROPONINI < 0.017 ng/mL (0.000-0.055)
[2017-12-25] MEDS: fentaNYL PF VIAL 100 MCG/2 ML VIAL IV (20:22)
== END 2017-12-25 20:50 | disposition home or self-care (01) ==
LOC: ER 18:46
DX: M54.2 Cervicalgia (principal); E11.9 Type 2 diabetes mellitus without complications; E78.00 Pure hypercholesterolemia, unspecified; I10 Essential (primary) hypertension; K21.9 Gastro-esophageal reflux disease without esophagitis; Z88.5 Allergy status to narcotic agent; Z88.6 Allergy status to analgesic agent
CPT/HCPCS: 36415; 80048; 84484; 85025; 93005; 96374; 99285-25; J3010

== ENCOUNTER 2021-03-11 15:11 | Emergency (ER) | payer MEDICARE ==
[~2021-03-11] VITALS: Ht 162.6 cm; Wt 82.0 kg
[~2021-03-11 15:11] MED LIST changes: +GABA-585 PO; +HYDR-2761 PO; -LISI-338 PO; +LISI-517 PO; +LOSA25TA54 PO; +METF-658 PO; +METF500T16 PO; -METF500T4 PO; -METF500T9 PO; +MULT-650 PO; +OXYC1TAB7 PO; +OXYC5TAB4 PO; +REPA2TAB7 PO
--- NOTE | 2021-03-11 16:03 | ED.ADGEN ---
Past Medical History Past Medical History: Arthritis, Diabetes-Type II, GERD, High Cholesterol, Hypertension, Other Past Surgical History: , Other Additional Past Surgical Histo: cataract Smoking Status: Former Smoker Alcohol Use: None Drug Use: None General Adult EDM: Chief Complaint: WRIST PAIN HPI: HPI: Patient is a 71 year old AA female who presents emergency department with complaints of left wrist pain and swelling after falling in her shower today. Patient states she fell at approximately 1315 this afternoon. She landed on her left wrist. Patient denies any head injury. She denies any loss of consciousness. Patient reports that EMS evaluated her at home and put her in a splint but she did not want to take an ambulance to the hospital. She denies any numbness, tingling or decreased sensation of the affected extremity. Patient denies any neck, back, or lower extremity pain. She currently rates her pain a 10 out of 10 on the pain scale, she denies any alleviating factors the pain is worse if the area is touched. Review of Systems: Review of Systems: Complete ROS is negative unless otherwise noted in HPI. Current Medications: Current Medications Medications (Trade) Dose Ordered Sig/[place] Start Time Stop Time Status Last Admin Dose Admin Acetaminophen/ Hydrocodone Bitart (Lortab 5/325) 1 tab 1X ONCE 03/11/21 16:15 03/11/21 16:16 DC 03/11/21 16:10 1 TAB Allergies: Allergies: Allergies Coded Allergies Type Severity Reaction Last Updated Verified lisinopril Allergy Intermediate angioedema 04/27/15 Yes codeine Adverse Reaction Intermediate Nausea and Vomiting 04/27/15 Yes Physical Exam: PE: See Above Constitutional: Well developed, well nourished, no acute distress, non-toxic appearance. [] HENT: Normocephalic, atraumatic, bilateral external ears normal, nose normal. [] Eyes: PERRLA, EOMI, conjunctiva normal, no discharge. [] Neck: Normal range of motion, no stridor. [] Cardiovascular:Heart rate regular rhythm Lungs & Thorax: Respirations even and unlabored, no retractions, no respiratory distress Abdomen: soft, no tenderness Skin: Warm, dry, no erythema, no rash. [] Extremities: Left wrist: Obvious deformity of the distal radius, 2+ radial pulse, no crepitus, cap refill less than 2 seconds, no cyanosis, ROM limited due to pain, 2+ edema Neurologic: Alert and oriented X 3, normal sensation, no focal deficits noted. [] Psychologic: Affect normal, judgement normal, mood normal. [] Current Patient Data: Vital Signs: Vital Signs Date Time Temp Pulse Resp B/P (MAP) Pulse Ox O2 Delivery O2 Flow Rate FiO2 03/11/21 17:22 91 18 145/62 (89) 99 Room Air 03/11/21 15:21 98.1 98.1 EKG: EKG: [] Heart Score: C/O Chest Pain: No Risk Scores: Score 0 - 3: 2.5% MACE over next 6 weeks - Discharge Home Score 4 - 6: 20.3% MACE over next 6 weeks - Admit for Clinical Observation Score 7 - 10: 72.7% MACE over next 6 weeks - Early Invasive Strategies Radiology/Procedures: Radiology/Procedures: PROCEDURE: WRIST 3V RIGHT XR RT WRIST 3VIEWS History: Reason: R WRIST PAIN AFTER FALL / Spl. Instructions: / History: Technique: 3 views left wrist Comparison: None. Findings: Acute comminuted impacted intra-articular left distal radial fracture with dorsal angulation. Acute nondisplaced ulnar styloid fracture. No dislocation. Mild first carpal carpal triscaphe DJD. Impression: 1. Acute comminuted impacted intra-articular left distal radial fracture. 2. Acute nondisplaced ulnar styloid fracture. Electronically signed by: Morgan Smith DO (03/11/2021 4:01 PM) [id number] [] Course & Med Decision Making: Course & Med Decision Making Pertinent Labs and Imaging studies reviewed. (See chart for details) [] [] Patients Care and treatment plan provided by ER Nurse Practitioner. I was available for consult. Patient's chart reviewed. Jenelle Disclaimer: Jenelle Disclaimer: This electronic medical record was generated, in whole or in part, using a voice recognition dictation system. Departure Departure Impression: Primary Impression: Acute pain of left wrist Additional Impression: Closed fracture distal radius and ulna Disposition: HOME / SELF CARE / HOMELESS Condition: STABLE Referrals: CARLOTTA NOONAN MD Patient Instructions: Wrist Fracture, Wrist Splint, [id number] Additional Instructions: Fill prescription(s) and use as directed. Recommend application of ice, elevation, and rest of affected extremity. Wear the splint that was placed until follow up appointment. Follow-up with Dr. Noonan in 1 to 2 days, return to the ER if your symptoms worsen. Scripts Hydrocodone Bit/Acetaminophen (HYDROCODONE-APAP 5-325 ) 1 Tab Tablet 1 TAB PO PRN Q6HRS PRN for PAIN for 3 Days, #12 TAB 0 Refills Prov: EDE RODRIGUEZ APRN 03/11/21 Splinting Splinting : Location: L wrist Hand-Made Type: orthoglass Splint: volar Pre-Proc Neuro Vasc Exam: normal Post-Proc Neuro Vasc Exam: normal, unchanged from pre-exam Progress Cap refill less than 2 seconds following splint application. Patient tolerated procedure well, reports decreased pain after application. Problem Qualifiers Additional Impression: Closed fracture distal radius and ulna Encounter type: initial encounter Laterality: right Qualified Codes: S52.501A - Unspecified fracture of the lower end of right radius, initial encounter for closed fracture; S52.601A - Unspecified fracture of lower end of right ulna, initial encounter for closed fracture EDE RODRIGUEZ APRN Mar 11, 2021 16:03 EZEKIEL HARDIN DO Mar 15, 2021 18:26
[2021-03-11] MEDS ORDERED: HYDROcodone/APAP 5/325MG 1 TAB TABLET PO ONE (16:15)
[2021-03-11] MEDS ORDERED: HYDR-2761 PO (17:03)
[2021-03-11 17:22] VITALS: BP 145/62
== END 2021-03-11 17:22 | disposition home or self-care (01) ==
LOC: ER 15:11
DX: S52.501A Unspecified fracture of the lower end of right radius, initial encounter for closed fracture (principal); S52.601A Unspecified fracture of lower end of right ulna, initial encounter for closed fracture; E11.9 Type 2 diabetes mellitus without complications; K21.9 Gastro-esophageal reflux disease without esophagitis; E78.00 Pure hypercholesterolemia, unspecified; I10 Essential (primary) hypertension; Z87.891 Personal history of nicotine dependence; W18.2XXA Fall in (into) shower or empty bathtub, initial encounter; Y93.E1 Activity, personal bathing and showering; Y92.89 Other specified places as the place of occurrence of the external cause; Y99.8 Other external cause status
CPT/HCPCS: 29125; 73110; 99283; A4565